=== PATIENT | male | born 1995 | race African-American/Black ===

== ENCOUNTER 2022-11-16 16:13 | Emergency (ER) | payer MEDICAID, MEDICARE ==
[~2022-11-16] VITALS: Ht 182.9 cm; Wt 77.0 kg
[2022-11-16 16:17] VITALS: O2SAT 98
[2022-11-16 17:48] LABS: BASOPHILS % 0.4 % (0.0-2.0); EOSINOPHILS % 0.2 % (0.0-5.0); HEMATOCRIT. 45.3 % (42.0-52.0); HEMOGLOBIN. 15.3 g/dL (14.0-18.0); LYMPHOCYTES % 10.4 % (20.0-50.0); MEAN CORPUSCULAR HEMOGLOBIN 27.7 pg (28.0-32.0); MEAN CORPUSCULAR HGB CONC 33.7 g/dL (31.0-37.0); MEAN CORPUSCULAR VOLUME 82.2 fL (80.0-94.0); MEAN PLATELET VOLUME 8.6 fl (7.4-10.4); MONOCYTES % 6.9 % (2.0-8.0); NEUTROPHILS % 82.1 % (40.0-76.0); PLATELET 225 x1000/uL (130-400); RED BLOOD CELL COUNT 5.51 mill/uL (4.7-6.1); WHITE BLOOD COUNT 11.4 x1000/uL (4.5-11.0)
[2022-11-16 17:57] LABS: CHLORIDE 105 mEq/L (98-107); INDEX HEMOLYSI 1 (1-3); INDEX ICTERIC 1 (1-4); INDEX LIPEMIC 1 (1-3); POTASSIUM 3.1 mEq/L (3.5-5.1); SODIUM 137 mEq/L (136-145)
[2022-11-16 18:09] LABS: ALANINE AMINOTRANSFERASE 19 IU/L (13-61); ALBUMIN 4.5 g/dL (3.4-5.0); ASPARTATE AMINOTRANSFERASE 21 IU/L (15-37); BILIRUBIN TOTAL 0.4 mg/dL (0.1-1.0); CALCIUM 9.4 mg/dL (8.5-10.1); CARBON DIOXIDE 20 mEq/L (21-32); CREATININE 1.1 mg/dL (0.6-1.3); GLUCOSE 213 mg/dL (70-105); UREA NITROGEN BLOOD 12 mg/dL (7-21)
[2022-11-17 00:58] LABS: CLARITY URINE CLEAR (CLEAR); COLOR URINE YELLOW (YELLOW); GLUCOSE URINE 1+ (NEGATIVE); KETONES URINE 3+ (NEGATIVE); LEUKOCYTE ESTERASE URINE NEGATIVE (NEGATIVE); NITRITE URINE NEGATIVE (NEGATIVE); OCCULT BLOOD URINE 1+ (NEGATIVE); PH URINE 6.5 (4.5-8.0); PROTEIN URINE 1+ (NEGATIVE); SPECIFIC GRAVITY URINE 1.031 (1.005-1.030)
[2022-11-17] MEDS ORDERED: SODIUM CHLORIDE 0.9% 1,000 ML IV ONE (01:30)
[2022-11-17] MEDS ORDERED: ONDANSETRON HCL 4MG/2ML INJ IV NR (01:30)
[2022-11-17] MEDS ORDERED: KETOROLAC 15MG/ML VIAL IV NR (01:30)
[2022-11-17] MEDS ORDERED: ONDA4TAB50 MT (02:45)
[2022-11-17] MEDS ORDERED: DICY10CA88 MT (02:45)
[2022-11-17] MEDS ORDERED: ACET-2708 MT (02:45)
[2022-11-17] MEDS ORDERED: KETOROLAC 15MG/ML VIAL IV ONE (03:15)
[2022-11-17 04:30] VITALS: BP 140/101; PULSE 52; RESP 13; TEMP 98.6
[2022-11-17 07:28] LABS: SQUAMOUS EPITHELIAL CELL URINE NONE SEEN /lpf (RARE/1+)
[2022-11-17 07:29] LABS: WBC URINE 0-2 /hpf (0-2)
[2022-11-17 07:30] LABS: BACTERIA URINE NONE SEEN
== END 2022-11-17 05:00 | disposition home or self-care (01) ==
LOC: ER 16:13
DX: R10.84 Generalized abdominal pain (principal); R11.2 Nausea with vomiting, unspecified
CPT/HCPCS: 80053; 83690; 85025; 36415; 99284; 81003; 96361; 96374; 96375; 96376; J1885; J2405; Z7610 ×5

== ENCOUNTER 2022-11-17 06:43 | Emergency (ER) | payer MEDICARE ==
[~2022-11-17] VITALS: Ht 170.2 cm; Wt 75.0 kg
[~2022-11-17 06:43] MED LIST: ACET-2708 MT; DICY10CA88 MT; ONDA4TAB50 MT
[2022-11-17 07:26] VITALS: BP 130/80; PULSE 72; RESP 18; TEMP 98.9; O2SAT 98
[2022-11-17 08:47] LABS: CLARITY URINE CLEAR (CLEAR); COLOR URINE DARK YELLOW (YELLOW); GLUCOSE URINE NEGATIVE (NEGATIVE); KETONES URINE 4+ (NEGATIVE); LEUKOCYTE ESTERASE URINE NEGATIVE (NEGATIVE); NITRITE URINE NEGATIVE (NEGATIVE); OCCULT BLOOD URINE 2+ (NEGATIVE); PH URINE 8.5 (4.5-8.0); PROTEIN URINE 2+ (NEGATIVE); SPECIFIC GRAVITY URINE 1.037 (1.005-1.030)
[2022-11-17 09:02] LABS: MUCUS URINE 1+ /lpf (NONE/TRACE)
[2022-11-17 09:04] LABS: RBC URINE 50-100 /hpf (0-2); SQUAMOUS EPITHELIAL CELL URINE RARE /lpf (RARE/1+)
[2022-11-17 09:05] LABS: BACTERIA URINE TRACE; WBC URINE 0-2 /hpf (0-2)
== END 2022-11-17 11:46 | disposition left against medical advice (07) ==
LOC: ER 06:59
DX: Z53.21 Procedure and treatment not carried out due to patient leaving prior to being seen by health care provider (principal)
CPT/HCPCS: 81003; 99281